=== PATIENT | female | born 1950 | race Caucasian/White ===

== ENCOUNTER 2017-02-12 13:05 | Emergency (ER) | payer OTHER ==
[2017-02-12 14:34] VITALS: BP 160/100
--- NOTE | 2017-02-12 16:07 | RAD ---
Indication: Left rib pain. 3 views of left ribs demonstrate no fracture. No other bone or joint abnormality is identified. IMPRESSION: No fracture of the left ribs is noted.
--- NOTE | 2017-02-12 16:15 | RAD ---
Indication: Bruise posterior aspect LEFT chest at level of scapula post fall 2010 days ago. Comparison: September 09, 2016 PA and lateral chest radiographs. Technique: AP and lateral views thoracic spine. Report: The thoracic vertebral bodies are normal in height without evidence for fracture. Mild RIGHT convex curve is unchanged compared with the prior exam. Multilevel thoracic degenerative spondylosis without change. Unremarkable paraspinal soft tissue contours. IMPRESSION: Negative for thoracic spine fracture.
--- NOTE | 2017-02-12 16:34 | UC ---
Truncal Trauma HPI - HPI Summary HPI Summary: TEN DAYS AGO, INJURY TO UPPER BACK, FELL BACKWARDS AND HIT LEFT UPPER BACK. BRUISING FOLLOWED. NO STILL HAVING PAIN WITH DEEP INSPIRATION. - History Of Current Complaint Chief Complaint: UCBackPain Stated Complaint: S/P FALL LEFT SIDE BACK PAIN Time Seen by Provider: 02/12/17 15:04 Hx Obtained From: Patient Hx Last Menstrual Period: age 56 you Onset/Duration: Sudden Onset, Lasting Weeks, Still Present Onset Of Pain: Post Accident Severity Initially: Moderate Severity Currently: Mild Mechanism Of Injury: Fall From A Standing Position, Twisted Aggravating Factor(s): Deep Breathing Alleviating factor(s): Shallow Breathing Associated Signs And Symptoms: Negative: SOB, Chest Pain, Cough, Fever, Nausea, Vomiting - Allergies/Home Medications Allergies/Adverse Reactions: Allergies Allergy/AdvReac Type Severity Reaction Status Date / Time ENVIRONMENTAL/SEASONAL Allergy ITCHY Uncoded 02/12/17 14:34 ALLERGIES EYES, SINUS CONGESTION PMH/Surg Hx/FS Hx/Imm Hx Previously Healthy: Yes Endocrine History Of: Denies: Diabetes, Thyroid Disease Cardiovascular History Of: Reports: Hypertension Denies: Cardiac Disorders Respiratory History Of: Denies: COPD, Asthma GI/ History Of: Denies: Ulcer Cancer History Of: Denies: Breast Cancer - Surgical History Surgical History: Yes Surgery Procedure, Year, and Place: Appendectomy; Right Wrist Surgery due to Fracture; gastric bypass 12/2014 - Family History Known Family History: Negative: Respiratory Disease - Social History Lives: With Family Alcohol Use: Occasionally Alcohol Amount: 1-2 times a month a glass of wine Substance Use Type: None Smoking Status (MU): Never Smoked Tobacco - Immunization History Most Recent Influenza Vaccination: 2013 Most Recent Tetanus Shot: 2012 Most Recent Pneumonia Vaccination: NONE Review of Systems Constitutional: Negative Skin: Negative Eyes: Negative ENT: Negative Respiratory: Negative Cardiovascular: Negative Gastrointestinal: Negative Genitourinary: Negative Motor: Negative Neurovascular: Negative Musculoskeletal: Myalgia - LEFT POSTERIOR RIB/BACK PAIN Neurological: Negative Psychological: Negative All Other Systems Reviewed And Are Negative: Yes Physical Exam Triage Information Reviewed: Yes Appearance: Well-Appearing, Pain Distress - MILD Vital Signs: Initial Vital Signs Temp 98.3 F 02/12/17 14:30 Pulse 64 02/12/17 14:30 Resp 16 02/12/17 14:30 BP 160/100 02/12/17 14:30 Pulse Ox 100 02/12/17 14:30 Vital Signs Reviewed: Yes Eye Exam: Normal ENT Exam: Normal ENT: Positive: Normal ENT inspection, TMs normal Dental Exam: Normal Neck exam: Normal Respiratory: Positive: Lungs clear, Normal breath sounds, No respiratory distress, No accessory muscle use, Respiratory distress. Negative: Chest non- tender - POSTERIOR SUPERIOR BACK PAIN, ECCYMOSES Cardiovascular Exam: Normal Cardiovascular: Positive: RRR, No Murmur, Pulses Normal, Brisk Capillary Refill Abdominal Exam: Normal Abdomen Description: Positive: Nontender, No Organomegaly Musculoskeletal Exam: Normal Musculoskeletal: Positive: Strength Intact, ROM Intact Neurological Exam: Normal Psychological Exam: Normal Psychological: Positive: Normal Response To Family Skin: Positive: Other - ECCYMOSES LEFT POSTERIOR BACK Truncal Trauma Course/Dx - Differential Dx/Diagnosis Differential Diagnosis/HQI/PQRI: Chest Wall Contusion, Rib Fracture, Thoracic Provider Diagnoses: LEFT POSTERIOR RIB CONTUSION/SPRAIN Discharge - Discharge Plan Condition: Stable Disposition: HOME Patient Education Materials: Rib Contusion (ED) Referrals: Jennifer Rojas MD [Primary Care Provider] - Images Front/Back of Body, Lg ([place]): 1 - BRUISING HERE 5CM X 2CM
== END 2017-02-12 16:34 | disposition home or self-care (01) ==
LOC: UCCORT 13:05
DX: S20.222A Contusion of left back wall of thorax, initial encounter (principal); S23.41XA Sprain of ribs, initial encounter; W19.XXXA Unspecified fall, initial encounter; Y93.9 Activity, unspecified; Y92.9 Unspecified place or not applicable; I10 Essential (primary) hypertension
CPT/HCPCS: 72070; 99211; G0463

== ENCOUNTER 2017-06-05 09:01 | Emergency (ER) | payer BC ==
[2017-06-05 11:18] VITALS: BP 141/97
--- NOTE | 2017-06-05 13:19 | UC ---
Andre Norman Benjamin, scribed for Katharine Hdez MD on 06/05/17 at 1127 . FLU HPI - HPI Summary HPI Summary: 66yo female who has been around sick grandkids with stuffy runny nose and cold last week in [place]. Pt then started to develop stuffy nose, head congestion and chest congestion since Thursday. Pt also reports productive cough today and sore throat earlier this week but now resolved. Denies fever, body aches, or ear aches. Pt is UTD on flu shot this season. Denies known family members having strep throat. - History of Current Complaint Chief Complaint: UCGeneralIllness Stated Complaint: CHEST CONGEST,COUGH Time Seen by Provider: 06/05/17 11:13 Hx Obtained From: Patient Hx Last Menstrual Period: age 56 you Onset/Duration: Lasting Days - 4 days, Still Present Severity Currently: None Severity Initially: Mild Pain Intensity: 0 Pain Scale Used: 0-10 Numeric Associated Signs & Symptoms: Positive: Cough, Sore Throat, Nasal Congestion. Negative: Fever - Allergy/Home Medications Allergies/Adverse Reactions: Allergies Allergy/AdvReac Type Severity Reaction Status Date / Time ENVIRONMENTAL/SEASONAL Allergy ITCHY Uncoded 06/05/17 10:27 ALLERGIES EYES, SINUS CONGESTION Home Medications: Home Medications Multiple Vitamins W/ Minerals [Eye Vitamins & Minerals] 1 tab PO DAILY 06/05/17 [History Confirmed 06/05/17] PMH/Surg Hx/FS Hx/Imm Hx Previously Healthy: Yes - see hpi. HtN tx Cardiovascular History: Hypertension GI/ History: Gastroesophageal Reflux - Surgical History Surgical History: Yes Surgery Procedure, Year, and Place: Appendectomy; Right Wrist Surgery due to Fracture; gastric bypass 12/2014 - Family History Known Family History: Negative: Cardiac Disease, Respiratory Disease - Social History Occupation: Employed Full-time Lives: With Family Alcohol Use: Occasionally Alcohol Amount: 1-2 times a month a glass of wine Substance Use Type: None Smoking Status (MU): Never Smoked Tobacco - Immunization History Most Recent Influenza Vaccination: 2013 Most Recent Tetanus Shot: 2013 Most Recent Pneumonia Vaccination: NONE Review of Systems Constitutional: Other - see HPI Skin: Negative Eyes: Negative ENT: Sore Throat, Nasal Discharge Respiratory: Cough Cardiovascular: Negative Gastrointestinal: Negative Genitourinary: Negative Motor: Negative Neurovascular: Negative Musculoskeletal: Negative Neurological: Negative Psychological: Negative All Other Systems Reviewed And Are Negative: Yes Physical Exam Triage Information Reviewed: Yes Appearance: Well-Nourished Vital Signs: Initial Vital Signs Temp 98.8 F 06/05/17 10:29 Pulse 71 06/05/17 10:29 Resp 16 06/05/17 10:29 BP 156/87 06/05/17 10:29 Pulse Ox 100 06/05/17 10:29 Vital Signs Reviewed: Yes Eye Exam: Normal ENT: Positive: Normal ENT inspection, Pharyngeal erythema, TMs normal. Negative : Muffled/hoarse voice Neck: Positive: Supple, No Lymphadenopathy Respiratory: Positive: Lungs clear, No respiratory distress - No tachypnea, no dyspnea, No accessory muscle use, Rhonchi - Ronchorous cough Cardiovascular: Positive: RRR, Pulses Normal, Brisk Capillary Refill Abdomen Description: Positive: Nontender, No Organomegaly, Soft Bowel Sounds: Positive: Present Musculoskeletal Exam: Normal Neurological Exam: Normal Psychological Exam: Normal Psychological: Positive: Age Appropriate Behavior Skin Exam: Normal Skin: Negative: rashes Flu Course/Dx - Course Course Of Treatment: Reviewed pt's medications list and allergies. Blood pressure noted. Advised to follow up with her PCP. Pt is UTD on flu shot this season. S/sx c/w acute bronchitis. Could be viral. However, some sinus sx starting. She is interested in abx (amoxil), d/w pt. Questions answered to the best of my ability. - Differential Dx/Diagnosis Provider Diagnoses: Acute bronchitis / uri Discharge - Discharge Plan Condition: Stable Disposition: HOME Prescriptions: Amoxicillin PO (*) [Amoxicillin 875 MG (*)] 875 mg PO BID #14 tab Patient Education Materials: Acute Bronchitis (ED) Referrals: Jennifer Rojas MD [Primary Care Provider] - Additional Instructions: Please follow up with your primary care provider in 1-2 weeks. Seek medical attention for worse or new problems in the meantime. The documentation as recorded by the Andre alatorre Benjamin accurately reflects the service I personally performed and the decisions made by me, Katharine Hdez MD.
== END 2017-06-05 11:45 | disposition home or self-care (01) ==
LOC: UCEAST 09:01
DX: J20.9 Acute bronchitis, unspecified (principal); J06.9 Acute upper respiratory infection, unspecified; I10 Essential (primary) hypertension; K21.9 Gastro-esophageal reflux disease without esophagitis; Z98.84 Bariatric surgery status
CPT/HCPCS: 99212; G0463